=== PATIENT | male | born 1955 | race Caucasian/White ===

== ENCOUNTER 2017-08-28 08:12 | Day surgery (SDC) | payer BC ==
[~2017-08-28 08:12] MED LIST: Lactated Ringers 1,000 ML IV SCH; Lidocaine 2% 5 ML SDV ONE; Propofol 200 MG/20 ML SDV ONE; fentaNYL 100 MCG/2 ML SDV ONE
--- NOTE | 2017-08-28 08:56 | PCM.PREANE ---
Preanesthetic Assessment - Anesthesia/Transfusion/Family Hx Anesthesia History: Prior Anesthesia Without Reaction Family History of Anesthesia Reaction: No Transfusion History: Prior Transfusion Without Reaction - Review of Systems General: No Symptoms Pulmonary: No Symptoms Cardiovascular: No Symptoms Gastrointestinal: No Symptoms Neurological: No Symptoms - Physical Assessment NPO Status Date: 08/27/17 Height: 1.73 m Weight: 58.967 kg ASA Class: 3 Mental Status: Alert & Oriented x3 Airway Class: Mallampati = 2 Dentition: Reports: Edentulous ROM/Head Extension: Full Lungs: Clear to Auscultation, Normal Respiratory Effort Cardiovascular: Regular Rate, Regular Rhythm - Allergies Allergies/Adverse Reactions: Allergies Allergy/AdvReac Type Severity Reaction Status Date / Time morphine Allergy Hives Verified 08/25/17 15:16 - Anesthesia Plan Pre-Op Medication Ordered: None (has axillary femoral bypass graft on R side, Position so as not to obstruct this graft.) - Acknowledgements Anesthesia Type Planned: MAC Pt an Appropriate Candidate for the Planned Anesthesia: Yes Alternatives and Risks of Anesthesia Discussed w Pt/Guardian: Yes Pt/Guardian Understands and Agrees with Anesthesia Plan: Yes PreAnesthesia Questionnaire HEENT History: Reports: Other (See Below) Other HEENT History: wears glasses, has top and bottom dentures Cardiovascular History: Reports: High Cholesterol, Other (See Below) Other Cardiovascular History: pt on propranolol and nadolol Gastrointestinal History: Reports: Chronic Diarrhea Genitourinary History: Reports: Renal Calculus Musculoskeletal History: Reports: Fracture Other Musculoskeletal History: hx fx collarbone and fx wrist Endocrine/Metabolic History: Reports: Other (See Below) Other Endocrine/Metabolic History: hx radical pancreaticoduodectomy, on insulin Hematologic History: Reports: Blood Transfusion(s) Oncologic (Cancer) History: Reports: Other (See Below) Other Oncologic History: rectal cancer, ? pancreatic cancer - Past Surgical History Head Surgeries/Procedures: Reports: None GI Surgical History: Reports: Cholecystectomy, Colonoscopy, Hernia, Inguinal, Other (See Below) Other GI Surgeries/Procedures: excisionof rectal tumor, hx LAR with ileostomy for rectal cancer, presumably loop, which was later reversed. hx ax-fem-fem bypass, whipple procedure in 2008 (?pancreatic cancer) Male Surgical History: Reports: Lithotripsy (ESWL) - SUBSTANCE USE Smoking Status *Q: Current Every Day Smoker Tobacco Use Within Last Twelve Months: Cigarettes Recreational Drug Use History: No - HOME MEDS Home Medications: Home Meds Aspirin [Kennard Aspirin] 81 mg PO DAILY 08/25/17 [History] Cholecalciferol (Vitamin D3) [Vitamin D3] 5,000 units PO DAILY 08/25/17 [History ] Clopidogrel Bisulfate [Plavix] 75 mg PO DAILY 08/25/17 [History] Insulin Aspart [NovoLOG] 1 injection SUBCUT ASDIRECTED 08/25/17 [History] Insulin Glargine,Hum.Rec.Anlog [Basaglar Kwikpen U-100] 9 units SUBCUT BEDTIME 08/25/17 [History] Lactobacillus Rhamnosus GG [Culturelle] 1 tab PO DAILY 08/25/17 [History] Loperamide HCl [Loperamide] 1 - 2 tab PO ASDIRECTED PRN 08/25/17 [History] Magnesium Oxide/Mag AA Chelate [Magnesium] 400 mg PO BID 08/25/17 [History] Nadolol [Naldol] 20 mg PO DAILY 08/25/17 [History] Ondansetron [Zofran Odt] 8 mg PO ASDIRECTED PRN 08/25/17 [History] Propranolol HCl 10 mg PO TID 08/25/17 [History] Simvastatin [Zocor] 5 mg PO DAILY 08/25/17 [History] Vitamin E 200 units PO DAILY 08/25/17 [History] Zolpidem Tartrate [Ambien] 10 mg PO BEDTIME 08/25/17 [History] oxyCODONE 30 mg PO ASDIRECTED PRN 08/25/17 [History] - CURRENT (IN HOUSE) MEDS Current Meds: Current Medications Lactated Ringer's (Ringers, Lactated) 1,000 mls @ 125 mls/hr IV ASDIRECTED LISA Discontinued Medications Fentanyl (Sublimaze) Confirm Administered Dose 100 mcg .ROUTE .STK-MED ONE Stop: 08/28/17 07:40 Lidocaine (Xylocaine-Mpf 2%) Confirm Administered Dose 5 ml .ROUTE .STK-MED ONE Stop: 08/28/17 07:40 Propofol (Diprivan 20 Ml) Confirm Administered Dose 400 mg .ROUTE .STK-MED ONE Stop: 08/28/17 07:40
[2017-08-28] MEDS ORDERED: Ondansetron 4 MG Tab.DIS PO PRN (11:30)
--- NOTE | 2017-08-28 11:35 | PCM.OPNOTE ---
- General Post-Op/Procedure Note Date of Surgery/Procedure: 08/28/17 Operative Procedure(s): Colonoscopy Pre Op Diagnosis: Change in bowel habits. Personal history of rectal cancer. Post-Op Diagnosis: No evidence of neoplasia Anesthesia Technique: MAC (ASA III) Primary Surgeon: Diaz Glass Barrel Racer: Chaka Matias Condition: Good Free Text/Narrative:: Dictation [id number] CPT CODE 60775
[2017-08-28] MEDS ORDERED: Lactated Ringers 1,000 ML IV SCH (11:45)
--- NOTE | 2017-08-28 11:47 | PCM.POSTAN ---
POST ANESTHESIA ASSESSMENT - MENTAL STATUS Mental Status: Oriented, Somnolent - RESPIRATORY Respiratory Status: Respiratory Rate WNL, Airway Patent, O2 Saturation Stable - CARDIOVASCULAR CV Status: Pulse Rate WNL, Blood Pressure Stable - GASTROINTESTINAL GI Status: No Symptoms - POST OP HYDRATION Hydration Status: Adequate & Stable
--- NOTE | 2017-08-28 11:56 | PCM48HPAN ---
Post Anesthesia Note - EVALUATION WITHIN 48HRS OF ANESTHETIC Vital Signs in Normal Range: Yes Patient Participated in Evaluation: Yes Respiratory Function Stable: Yes Airway Patent: Yes Cardiovascular Function Stable: Yes Hydration Status Stable: Yes Pain Control Satisfactory: Yes Nausea and Vomiting Control Satisfactory: Yes Mental Status Recovered: Yes Resp Rate: 12
--- NOTE | 2017-08-28 14:57 | OR ---
SURGEON: Diaz Glass M.D. DATE OF PROCEDURE: 08/28/2017 OPERATION PERFORMED: Colonoscopy. ANESTHESIA: MAC. ASA CLASSIFICATION: III. PREOPERATIVE DIAGNOSES: 1. Change in bowel habits. 2. Personal history of rectal cancer. POSTOPERATIVE DIAGNOSIS: No evidence of neoplasia. BODY TEAM MEMBER: Dr. Tran, PGY-3. DESCRIPTION OF PROCEDURE: The patient was taken to the endoscopy room, positioned on the endoscopy table in the left lateral decubitus position. Time-out was called for appropriate identification of the patient and procedure. Monitored anesthesia care was provided. The colonoscope was inserted into the rectum and advanced with moderate difficulty to the cecum. The prep was only fair quality and certainly a small polyp could be missed. The colonoscope was retroflexed in the cecum to visualize the ascending colon from below, then straightened, and slowly withdrawn. The cecum, ascending colon, hepatic flexure, transverse colon, splenic flexure, descending colon, sigmoid colon, and rectum were well visualized. No tumors, polyps, or diverticular changes were noted. There was no significant evidence of an anastomotic stricture visually or by manipulation of the colonoscope. Once the colonoscope was withdrawn to the rectum, it was retroflexed to visualize the anal orifice from above. No tumors or polyps were seen and there were no acute hemorrhoidal changes. The colonoscope was then straightened, the rectum aspirated, and the colonoscope removed. The patient tolerated the procedure well and was taken to recovery room in stable condition. CALI DEL ROSARIO /[id number]
== END 2017-08-28 12:15 | disposition home or self-care (01) ==
LOC: MW.SDS 08:12
PROVIDERS: ATTEND Surgery
DX: R19.4 Change in bowel habit (principal); E78.00 Pure hypercholesterolemia, unspecified; F17.210 Nicotine dependence, cigarettes, uncomplicated; Z79.01 Long term (current) use of anticoagulants; Z79.899 Other long term (current) drug therapy; Z85.048 Personal history of other malignant neoplasm of rectum, rectosigmoid junction, and anus; Z88.5 Allergy status to narcotic agent; Z98.890 Other specified postprocedural states; Z79.82 Long term (current) use of aspirin; Z79.4 Long term (current) use of insulin; Z85.07 Personal history of malignant neoplasm of pancreas
CPT/HCPCS: 45378; 82962; J3010; J7120; 00811; J2704

== ENCOUNTER 2017-09-29 06:28 | Day surgery (SDC) | payer BC ==
[~2017-09-29 06:28] MED LIST changes: -Lidocaine 2% 5 ML SDV ONE; -Propofol 200 MG/20 ML SDV ONE; +Sodium Chloride 0.9% 2.5 ML Syringe FLUSH PRN; -fentaNYL 100 MCG/2 ML SDV ONE
--- NOTE | 2017-09-29 07:20 | PCM.PREANE ---
Preanesthetic Assessment - Anesthesia/Transfusion/Family Hx Anesthesia History: Prior Anesthesia Without Reaction Family History of Anesthesia Reaction: No Transfusion History: Prior Transfusion Without Reaction - Review of Systems General: No Symptoms Pulmonary: No Symptoms Gastrointestinal: No Symptoms Neurological: No Symptoms Other: Reports: Easy Bleeding - Physical Assessment NPO Status Date: 09/28/17 NPO Status Time: 21:00 O2 Sat by Pulse Oximetry: 98 Respiratory Rate: 16 Vital Signs: Last Vital Signs Temp Pulse 49 L 09/29/17 06:30 Resp 16 09/29/17 06:30 BP 173/91 H 09/29/17 06:30 Pulse Ox 98 09/29/17 06:30 Height: 1.73 m Weight: 58.967 kg ASA Class: 3 Mental Status: Alert & Oriented x3 Airway Class: Mallampati = 2 Dentition: Reports: Edentulous ROM/Head Extension: Full Lungs: Clear to Auscultation, Normal Respiratory Effort Cardiovascular: Regular Rate, Regular Rhythm - Allergies Allergies/Adverse Reactions: Allergies Allergy/AdvReac Type Severity Reaction Status Date / Time morphine Allergy Hives Verified 09/25/17 11:29 - Anesthesia Plan Pre-Op Medication Ordered: None - Acknowledgements Anesthesia Type Planned: General Anesthesia Pt an Appropriate Candidate for the Planned Anesthesia: Yes Alternatives and Risks of Anesthesia Discussed w Pt/Guardian: Yes Pt/Guardian Understands and Agrees with Anesthesia Plan: Yes Additional Comments: PMH: PAD (s/p ax fem shunt, on plavix and asa for shunt), IDDM, hx or rectal CA , HTN (on beta blockers), chronic pain and chronic narcotics, smoker. PreAnesthesia Questionnaire HEENT History: Reports: Other (See Below) Other HEENT History: wears glasses, has upper and lower dentures Cardiovascular History: Reports: High Cholesterol, PVD Other Cardiovascular History: pt on propranolol and nadolol Gastrointestinal History: Reports: Pancreatitis Genitourinary History: Reports: BPH, Hydronephrosis, Renal Calculus Musculoskeletal History: Reports: Fracture Other Musculoskeletal History: hx fx collarbone and fx wrist Neurological History: Reports: Concussion Endocrine/Metabolic History: Reports: Diabetes, Type I Other Endocrine/Metabolic History: started insulin after Whipple procedure Hematologic History: Reports: Anticoagulation Therapy, Blood Transfusion(s) Other Hematologic History: thinks he had blood transfusions when his vascular graft was leaking Oncologic (Cancer) History: Reports: Colon Other Oncologic History: rectal - Past Surgical History Cardiovascular Surgical History: Reports: Vascular Surgery Other Cardiovascular Surgeries/Procedures: vascular graft from right clavicle to groin GI Surgical History: Reports: Colonoscopy, Hernia, Inguinal, Other (See Below) Other GI Surgeries/Procedures: had Whipple procedure for pancreatitis, excision of rectal tumor Male Surgical History: Reports: Lithotripsy (ESWL) Oncologic Surgical History: Reports: Other (See Below) Other Oncologic Surgeries/Procedures: excision of rectal tumor - SUBSTANCE USE Smoking Status *Q: Current Every Day Smoker Tobacco Use Within Last Twelve Months: Cigarettes Recreational Drug Use History: No - HOME MEDS Home Medications: Home Meds Aspirin [Jenkins Aspirin] 81 mg PO DAILY 08/25/17 [History] Cholecalciferol (Vitamin D3) [Vitamin D3] 5,000 units PO DAILY 08/25/17 [History ] Clopidogrel Bisulfate [Plavix] 75 mg PO DAILY 08/25/17 [History] Insulin Aspart [NovoLOG] 1 injection SUBCUT ASDIRECTED 08/25/17 [History] Insulin Glargine,Hum.Rec.Anlog [Basaglar Kwikpen U-100] 9 units SUBCUT BEDTIME 08/25/17 [History] Lactobacillus Rhamnosus GG [Culturelle] 1 tab PO DAILY 08/25/17 [History] Loperamide HCl [Loperamide] 1 - 2 tab PO ASDIRECTED PRN MDD 8 capsules 08/25/17 [History] Magnesium Oxide/Mag AA Chelate [Magnesium] 400 mg PO BID 08/25/17 [History] Nadolol [Naldol] 20 mg PO DAILY 08/25/17 [History] Ondansetron [Zofran Odt] 8 mg PO Q8H PRN 08/25/17 [History] Propranolol HCl 10 mg PO TID 08/25/17 [History] Simvastatin [Zocor] 5 mg PO DAILY 08/25/17 [History] Vitamin E 200 units PO DAILY 08/25/17 [History] Zolpidem Tartrate [Ambien] 10 mg PO BEDTIME PRN 08/25/17 [History] oxyCODONE 30 mg PO Q6H PRN 08/25/17 [History] Dicyclomine [Bentyl] 20 mg PO QID 09/25/17 [History] - CURRENT (IN HOUSE) MEDS Current Meds: Current Medications Lactated Ringer's (Ringers, Lactated) 1,000 mls @ 100 mls/hr IV ASDIRECTED LISA Last Admin: 09/29/17 07:03 Dose: 100 mls/hr Sodium Chloride (Saline Flush) 2.5 ml FLUSH ASDIRECTED PRN PRN Reason: Keep Vein Open
[2017-09-29] MEDS ORDERED: Iopamidol 408 MG/ML 50 ML SDV ONE (07:31)
[2017-09-29] MEDS ORDERED: fentaNYL 250 MCG/5 ML SDV ONE (07:32)
[2017-09-29] MEDS ORDERED: Propofol 200 MG/20 ML SDV ONE (07:32)
[2017-09-29] MEDS ORDERED: Midazolam 1 MG/ML 2 ML SDV ONE (07:32)
[2017-09-29] MEDS ORDERED: Lidocaine 2% 5 ML SDV ONE (07:32)
[2017-09-29] MEDS ORDERED: Ondansetron 4 MG/2 ML SDV ONE (07:32)
[2017-09-29] MEDS ORDERED: Rocuronium 10 MG/ML 10 ML Syringe ONE (08:16)
[2017-09-29] MEDS ORDERED: Succinylcholine 200 MG/10 ML MDV ONE (08:16)
[2017-09-29] MEDS ORDERED: fentaNYL 100 MCG/2 ML SDV IVPUSH PRN (08:32)
--- NOTE | 2017-09-29 08:59 | PCM.POSTAN ---
POST ANESTHESIA ASSESSMENT - MENTAL STATUS Mental Status: Alert, Oriented - RESPIRATORY Respiratory Status: Respiratory Rate WNL, Airway Patent, O2 Saturation Stable - CARDIOVASCULAR CV Status: Pulse Rate WNL, Blood Pressure Stable - GASTROINTESTINAL GI Status: No Symptoms - POST OP HYDRATION Hydration Status: Adequate & Stable
--- NOTE | 2017-09-29 09:43 | PCM48HPAN ---
Post Anesthesia Note - EVALUATION WITHIN 48HRS OF ANESTHETIC Vital Signs in Normal Range: Yes Patient Participated in Evaluation: Yes Respiratory Function Stable: Yes Airway Patent: Yes Cardiovascular Function Stable: Yes Hydration Status Stable: Yes Pain Control Satisfactory: Yes Nausea and Vomiting Control Satisfactory: Yes Mental Status Recovered: Yes Resp Rate: 15
--- NOTE | 2017-09-29 12:12 | OR ---
SURGEON: Nataly Velez M.D. DATE OF PROCEDURE: 09/29/2017 PREOPERATIVE DIAGNOSIS: Right-sided hydronephrosis. POSTOPERATIVE DIAGNOSIS: Right-sided hydronephrosis. OPERRATIONS/PROCEDURES: Cystoscopy and right retrograde pyelogram. FINDINGS: Partial obstruction to the right ureter at the junction of the middle and lower thirds that appeared to be created by an extrinsic compression. The degree of obstruction has not significantly changed, since he had his CT scan, I believe that was done in July. DESCRIPTION OF PROCEDURE: The patient was given general anesthesia, placed in dorsal lithotomy position, prepped and draped in sterile drapes. Cystourethroscopy was done. There was no significant prostatic obstruction. The inside of the bladder showed 3+ trabeculations. There were no tumors seen in the bladder. Right retrograde pyelogram was done and the images were recorded. There were no filling defects in the ureter. With that done, the procedure was terminated, and the patient was sent to the recovery room in good condition. ROSALIE / CARIN /[id number]
--- NOTE | 2017-09-29 16:21 | CR ---
EXAMINATION: Right retrograde pyelogram HISTORY: Hydronephrosis COMPARISON: 07/10/2017 TECHNIQUE: Contrast was injected into the right renal collecting system in a retrograde fashion sandi iglesias cystoscopy. FINDINGS/IMPRESSION: There is gentle tapering of the mid right ureter noted. There is blunting of the calyces suggesting mild hydronephrosis.
== END 2017-09-29 09:40 | disposition home or self-care (01) ==
LOC: MW.SDS 06:28
PROVIDERS: ATTEND Urology
DX: N13.1 Hydronephrosis with ureteral stricture, not elsewhere classified (principal)
CPT/HCPCS: 52005; 76000; J0330; J0690; J2250; J2405; J3010; J7120; Q9966; 00910; J2704